=== PATIENT | male | born 1990 | race Caucasian/White ===

== ENCOUNTER 2022-05-07 12:47 | Emergency (ER) | payer SELFPAY ==
[2022-05-07 12:50] VITALS: BP 132/71; PULSE 78; RESP 14; TEMP 36.8; O2SAT 97
[2022-05-07 13:06] VITALS: BP 132/71; PULSE 78; RESP 14; TEMP 36.8; O2SAT 97
--- NOTE | 2022-05-07 13:16 | ED.URI ---
HPI - URI/Sore Throat General Chief Complaint: Upper Respiratory Infection Stated Complaint: right ear sore throat Time Seen by Provider: 05/07/22 13:16 Source: patient and RN notes reviewed Mode of arrival: ambulatory Limitations: no limitations History of Present Illness HPI Narrative: 31-year-old male presents concern for 1.5 week history of painful swallowing, sore throat, cough. He reports swollen glands. He reports initial right your pain with decreased hearing right ear. He denies any [id number] medications for his symptoms. He denies known sick contacts. MD elicited complaint: cough and sore throat Related Data Allergies Allergy/AdvReac Type Severity Reaction Status Date / Time No Known Allergies Allergy Verified 05/07/22 12:57 Review of Systems Review of Systems: CONSTITUTIONAL: Denies malaise, chills, sweats, or fever. EYES: Denies visual changes, redness, or discharge. ENT: Denies rhinorrhea, congestion, sinus pain. Reports swelling glands, Brown right ear pain, right-sided sore throat. CARDIOVASCULAR: Denies chest pain, palpitations, or edema. RESPIRATORY: Reports cough. Denies dyspnea. GASTROINTESTINAL: Denies abdominal pain, nausea, vomiting, diarrhea SKIN: Denies rash or itching. MUSCULOSKELETAL: Denies myalgia. NEUROLOGIC: Denies headache. All systems reviewed & are unremarkable except as noted in HPI and below PMFSH Past Medical History Medical History (Updated 05/07/22 @ 13:34 by Jessica Mark NP) Asthma Social History Social History (Updated 04/29/19 @ 09:22 by Louann Chang NP) Smoking packs per day: 0.5 Smoking cigarettes per day: 10.0 Years smoked: 13 Smoking pack-years: 6.50 Smoking status: Current every day smoker Gender identity (if verbalized by the patient): Male Comments At time of signature, agree with nursing past medical, surgical, social and family history. There is no relevant family history pertinent to the presenting complaint Exam Narrative: GENERAL: Well-appearing, well-nourished, and in no acute distress. HEAD: Normocephalic EYES: PERRLA, conjunctivae clear ENT: Nares clear, no discharge. Mucous membranes moist. TM pearly ferreira with sharp light reflex bilaterally; no tragal tenderness. Oropharynx erythematous without lesions. Tonsils mildly enlarged and without exudate, no drooling, no hoarseness, no trismus, uvula midline. NECK: Supple. Right cervical lymphadenopathy CHEST: Clear to auscultation, breath sounds equal. No wheezing, rhonchi, rales, or stridor. No respiratory distress, speaks in full sentences. HEART: Regular rate and rhythm. No murmur heard. SKIN: Warm, dry, no rash. NEURO: Alert and oriented x3. PSYCH: Normal mood and affect Course Course Emergency Course: Patient is aware of diagnosis, understands and agrees to treatment plan. Anticipatory guidance given. Patient agrees to follow-up as directed and is aware of reasons to seek care at the emergency department. Portions of this record may have been created with voice recognition software Level of Care: Express Care Visit Vital Signs Vital signs: Vital Signs Temperature 98.2 F 05/07/22 12:50 Pulse Rate 78 05/07/22 12:50 Respiratory Rate 14 05/07/22 12:50 Blood Pressure 132/71 05/07/22 12:50 Pulse Oximetry 97 05/07/22 12:50 Oxygen Delivery Room Air 05/07/22 12:50 Temperature 98.2 F 05/07/22 13:06 Pulse Rate 78 05/07/22 13:06 Respiratory Rate 14 05/07/22 13:06 Blood Pressure 132/71 05/07/22 13:06 Pulse Oximetry 97 05/07/22 13:06 Oxygen Delivery Room Air 05/07/22 13:06 Reviewed. MDM - URI/Sore Throat MDM Narrative Medical decision making narrative: Differential diagnosis considered: Pierre virus, strep pharyngitis, allergic rhinitis, upper respiratory tract infection, sinusitis, rhinosinusitis, nasopharyngitis. viral pharyngitis, otitis media, otitis externa, pneumonia, bronchitis, viral cough syndrome, viral syndrome, and
== END 2022-05-07 13:37 | disposition home or self-care (01) ==
PROVIDERS: Emergency Provider Nurse Practitioner; PCP Family Medicine
DX: J03.90 Acute tonsillitis, unspecified (principal); J45.909 Unspecified asthma, uncomplicated; F17.210 Nicotine dependence, cigarettes, uncomplicated
CPT/HCPCS: 36416; 86308; 87081; 87880; 99203; G0463

== ENCOUNTER 2023-06-06 16:55 | Emergency (ER) | payer OTHER, SELFPAY ==
[2023-06-06 17:07] VITALS: BP 115/70; PULSE 62; RESP 16; TEMP 36.9; O2SAT 99
--- NOTE | 2023-06-06 17:38 | ED.MALEGU ---
HPI - Male Genitourinary General Chief complaint: Urogenital-Male Stated complaint: Urinary Problem Source: patient and RN notes reviewed Mode of arrival: ambulatory Limitations: no limitations History of Present Illness HPI Narrative: 32 y/o male presented for c/o pain with urination and yellow discharge x3 days. States it feels the same as when he had JONG 15 years ago. Declines std testing at this time. Denies abdominal pain, flank pain, hematuria, testicular pain/swelling, or skin lesions. Related Data Allergies Allergy/AdvReac Type Severity Reaction Status Date / Time acetaminophen [From Vicodin] Allergy Other Verified 06/06/23 17:12 hydrocodone [From Vicodin] Allergy Other Verified 06/06/23 17:11 Review of Systems Review of Systems: CONSTITUTIONAL: Denies body aches, fever, chills, or sweats. CARDIOVASCULAR: Denies chest pain, palpitations, or edema. RESPIRATORY: Denies cough or dyspnea. GASTROINTESTINAL: Denies abdominal pain, nausea, vomiting, or diarrhea. GENITOURINARY: Reports dysuria, urethral discharge denies frequency, urgency, hematuria, flank pain SKIN: Denies rash, itching, or wounds. MUSCULOSKELETAL: Denies back pain or myalgia. [facility] Past Medical History Medical History Asthma Social History Social History Smoking packs per day: 0.5 Smoking cigarettes per day: 10.0 Years smoked: 13 Smoking pack-years: 6.50 Smoking status: Current every day smoker Living arrangements: with family Gender identity (if verbalized by the patient): Male Comments At time of signature, I have reviewed and agree with nursing past medical, surgical, social and family history unless otherwise noted. Please see nursing chart for further information. There is no relevant family history pertinent to the presenting complaint Exam Narrative: GENERAL: Well-appearing ENT: Mucous membranes pink and moist. NECK: Normal AROM. Supple. CHEST: No respiratory distress. Clear to auscultation. HEART: Regular rate and rhythm. ABDOMEN: Soft, nontender, nondistended, normal active bowel sounds. No CVA tenderness SKIN: Warm, dry, no rash. NEURO: No focal deficits. Alert and oriented x3. Gait steady. Course Course Emergency Course: Patient is aware of diagnosis, understands and agrees to treatment plan. Anticipatory guidance given. Patient agrees to follow-up as directed and is aware of reasons to seek care at the emergency department. Portions of this record may have been created with voice recognition software Level of Care: Express Care Visit Vital Signs Vital signs: Vital Signs Temperature 98.4 F 06/06/23 17:07 Pulse Rate 62 06/06/23 17:07 Respiratory Rate 16 06/06/23 17:07 Blood Pressure 115/70 06/06/23 17:07 Pulse Oximetry 99 06/06/23 17:07 Oxygen Delivery Room Air 06/06/23 17:07 Temperature 98.4 F 06/06/23 17:07 Pulse Rate 62 06/06/23 17:07 Respiratory Rate 16 06/06/23 17:07 Blood Pressure 115/70 06/06/23 17:07 Pulse Oximetry 99 06/06/23 17:07 Oxygen Delivery Room Air 06/06/23 17:07 Reviewed MDM - Male Genitourinary MDM Narrative Medical decision making narrative: Patient presenting with concern for UTI. Urine will be sent for culture prior to treatment. Declined STD testing after lengthy conversation of risks. Pt is in room with sig other. States he will go to a clinic to get blood testing. Discussed physical exam findings and urine result. Advised supportive measures and signs/symptoms to go to the ER. Pt is appropriate for outpt treatment and f/u. Differential Diagnosis Differential diagnosis: Likely urinary tract infection, urethritis, epididymitis, prostatitis and other (std) Lab Data Labs: Urine Glucose Negative Reference Range: Negative Urine
== END 2023-06-06 17:52 | disposition home or self-care (01) ==
PROVIDERS: Emergency Provider Nurse Practitioner Family
DX: R30.0 Dysuria (principal); F17.210 Nicotine dependence, cigarettes, uncomplicated; J45.909 Unspecified asthma, uncomplicated
CPT/HCPCS: 81003; 87086; 99213; G0463

== ENCOUNTER 2023-07-16 10:43 | Emergency (ER) | payer SELFPAY ==
[2023-07-16 10:50] VITALS: BP 133/69; PULSE 76; RESP 16; TEMP 37.4; O2SAT 98
--- NOTE | 2023-07-16 11:16 | ED.URI ---
HPI - URI/Sore Throat General Chief Complaint: Upper Respiratory Infection Stated Complaint: Congestion/Cough/Sore Throat Time Seen by Provider: 07/16/23 11:32 Source: patient and RN notes reviewed Mode of arrival: ambulatory Limitations: no limitations History of Present Illness HPI Narrative: 32-year-old male presents with concern for cough, sore throat, nasal congestion, chills, body aches, feeling lightheaded. Reports symptoms started 4 days ago. MD elicited complaint: fever Related Data Home Medications Medication Instructions Recorded Confirmed No Home Medications 07/16/23 07/16/23 Allergies Allergy/AdvReac Type Severity Reaction Status Date / Time acetaminophen [From Vicodin] Allergy Other Verified 07/16/23 10:48 hydrocodone [From Vicodin] Allergy Other Verified 07/16/23 10:48 Review of Systems Review of Systems: CONSTITUTIONAL: Reports malaise, chills, sweats, fever. EYES: Denies visual changes, redness, or discharge. ENT: Reports rhinorrhea, congestion,and sore throat. CARDIOVASCULAR: Denies chest pain, palpitations, or edema. RESPIRATORY: Reports cough. Denies dyspnea. GASTROINTESTINAL: Denies abdominal pain, nausea, vomiting, diarrhea SKIN: Denies rash or itching. MUSCULOSKELETAL: Reports myalgia. NEUROLOGIC: Reports headache and lightheadedness. All systems reviewed & are unremarkable except as noted in HPI and below PMFSH Past Medical History Medical History Asthma Social History Social History Smoking packs per day: 0.5 Smoking cigarettes per day: 10.0 Years smoked: 13 Smoking pack-years: 6.50 Smoking status: Current every day smoker Living arrangements: with family Gender identity (if verbalized by the patient): Male Comments At time of signature, agree with nursing past medical, surgical, social and family history. There is no relevant family history pertinent to the presenting complaint Exam Narrative: GENERAL: Nontoxic-appearing, well-nourished, and in no acute distress. HEAD: Normocephalic EYES: PERRLA, conjunctivae clear ENT: Nares clear, turbinates edematous and erythematous, clear discharge. Mucous membranes moist. TM pearly ferreira with dull light reflex bilaterally; no tragal tenderness. Oropharynx not erythematous without lesions. Tonsils not enlarged and without exudate, no drooling, no hoarseness, no trismus, uvula midline. NECK: Supple. No lymphadenopathy CHEST: Clear to auscultation, breath sounds equal. No wheezing, rhonchi, rales, or stridor. No respiratory distress, speaks in full sentences. HEART: Regular rate and rhythm. No murmur heard. SKIN: Warm, dry, no rash. NEURO: Alert and oriented x3. PSYCH: Normal mood and affect Course Course Emergency Course: Patient is aware of diagnosis, understands and agrees to treatment plan. Anticipatory guidance given. Patient agrees to follow-up as directed and is aware of reasons to seek care at the emergency department. Portions of this record may have been created with voice recognition software Level of Care: Express Care Visit Vital Signs Vital signs: Vital Signs Temperature 99.4 F 07/16/23 10:50 Pulse Rate 76 07/16/23 10:50 Respiratory Rate 16 07/16/23 10:50 Blood Pressure 133/69 07/16/23 10:50 Pulse Oximetry 98 07/16/23 10:50 Oxygen Delivery Room Air 07/16/23 10:50 Temperature 99.4 F 07/16/23 10:50 Pulse Rate 76 07/16/23 10:50 Respiratory Rate 16 07/16/23 10:50 Blood Pressure 133/69 07/16/23 10:50 Pulse Oximetry 98 07/16/23 10:50 Oxygen Delivery Room Air 07/16/23 10:50 Reviewed. MDM - URI/Sore Throat MDM Narrative Medical decision making narrative: Differential diagnosis considered: Pierre virus, strep pharyngitis, allergic rhinitis, upper respiratory tract infection, sinusitis, rhinosinusitis, nasopharyngitis. viral pharyngitis, otiti
== END 2023-07-16 11:40 | disposition home or self-care (01) ==
PROVIDERS: Emergency Provider Nurse Practitioner
DX: J10.1 Influenza due to other identified influenza virus with other respiratory manifestations (principal); Z20.822 Contact with and (suspected) exposure to COVID-19; F17.210 Nicotine dependence, cigarettes, uncomplicated; J45.909 Unspecified asthma, uncomplicated
CPT/HCPCS: 87081; 87426; 87804; 87880; 99213; G0463

== ENCOUNTER 2024-08-05 12:27 | Emergency (ER) | payer SELFPAY ==
[2024-08-05 12:43] VITALS: BP 135/68; PULSE 68; RESP 16; TEMP 36.8; O2SAT 98
--- OUTSIDE RECORDS SUMMARY | 2024-08-05 12:47 | XMS_ITS | Referral Summary ---
Author Organization [facility] Address [address] [place] [address] Care Team Providers Care Health And Safety Coordinator Name Role Phone No, Physician Primary Care Provider [phone] Allergies Active Allergy Reactions Criticality Noted Date Comments Codeine Other (See comments) Low 06/16/2023 Pt reports it makes me rage out Medications ibuprofen (ADVIL,MOTRIN) 600 mg tablet Take 1 tablet (600 mg total) by mouth every 6 (six) hours as needed for pain for up to 30 doses 30 tablet 09/02/19 24 Active neomycin-polymyx in-dexAMETHasone (MAXITROL) 3.5mg/mL-10,000 unit/mL-0.1 % ophthalmic suspensionIndica tions:Conjunctiv al abrasion, right, initial encounter,Foreig n body of conjunctival sac of right eye, initial encounter Administer 1 drop into the right eye 4 (four) times a day Collaborating physician Nuno Beckett MD 5 mL 09/02/19 24 Active Active Problems Problem Noted Date Diagnosed Date Conjunctival abrasion, right, initial encounter 10/22/2022 Foreign body of right conjunctival sac 3 Subconjunctival hemorrhage of right eye 10/23/19 23 Immunizations Immunization Administration Dates Next Due DTP 11/06/1994, 3,05/31/1991,04/01,01/28/1991 Hep B, Adolescent or Pediatric 12/30/2000,1996,10/08/1995 HiB 11/06/1994, 3,05/31/1991,04/01,01/28/1991 MMR 11/06/1994,02/07/1992 Meningococcal Polysaccharide (Menomune) 12/25/2004 OPV 11/06/1994, 3,05/31/1991,04/01,01/28/1991 Td, adsorbed 12/25/2004 Tdap 08/22/2017,10/09/2005 Social History Tobacco Use Types Packs/Day Years Used Date Smoking Tobacco: Former Cigarettes 1 15 0 04/2006 - 04/2021 Smokeless Tobacco: Never Alcohol Use Standard Drinks/Week Comments Yes 0 (1 standard drink = 0.6 oz pur e alcohol) social Personal Safety Answer Date Recorded Have you ever been in or are you currently in a harmful physical or emotional relationship or is someone making you feel afraid or unsafe? 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 Gender Identity Not on file Sexual Orientation Not on file Last Filed Vital Signs Vital Sign Reading Time Taken Comments Blood Pressure 120/78 09/02/2023 11:15 PM CDT Pulse 65 09/02/2023 11:15 PM CDT Temperature 36.4 C (97.5 F) 09/02/2023 8:51 PM CDT Respiratory Rate 18 09/02/2023 11:15 PM CDT Oxygen Saturation 97% 09/02/2023 11:15 PM CDT Inhaled Oxygen Concentration - - Weight 79.4 kg (175 lb) 09/02/2023 8:51 PM CDT Height 175.3 cm (5' 9 ) 06/16/2023 3:08 PM MOTH PROOFER Body Mass Index 25.84 06/16/2023 3:08 PM MOTH PROOFER Plan of Treatment Not on file Insurance [employer] OPEN ACCESS [employer] ACC[employer] Care Teams Health And Safety Coordinator Relationship Specialty Start Date End Date No, Physician PCP - General 11/15/20
--- OUTSIDE RECORDS SUMMARY | 2024-08-05 12:47 | XMS_ITS | Clinical Summary ---
Author Organization [facility] Address [address] [place] [address] Phone Care Team Providers Care Shipping Track Supervisor Name Role Phone Katy Gurrola MD Primary Care Provider [phone] Allergies No known active allergies Medications PARoxetine (PAXIL) 20 MG TabletIndication s:Premature ejaculation Take 1 Tab by mouth as needed for Other (Ejaculatio n) for up to 30 doses. 30 Tab 1 11/12/2017 Active famotidine (PEPCID) 20 MG Tablet Take 1 Tablet by mouth 2 times daily. 60 Tablet 08/11/2021 Active dicyclomine (BENTYL) 20 MG Tablet Take 1 Tablet by mouth every 6 hours as needed (abdominal pain). 20 Tablet 08/11/2021 Active Social History Tobacco Use Types Packs/Day Years Used Date Smoking Tobacco: Every Day Cigarettes Smokeless Tobacco: Former Chew Quit: 11/13/2007 Tobacco Cessation:Ready to Q uit: Yes; Counseling Given: Yes Alcohol Use Standard Drinks/Week Comments No 0 (1 standard drink = 0.6 oz pur e alcohol) occasionally Sexually Active Control Partners Comments Yes Female Sex and Gender Information Value Date Recorded Sex Assigned at Not on file Legal Sex Male 8:46 PM CDT Gender Identity Not on file Sexual Orientation Not on file Last Filed Vital Signs Vital Sign Reading Time Taken Comments Blood Pressure 96/58 08/11/2021 8:30 PM CDT Pulse 66 08/11/2021 8:30 PM CDT Temperature 36.7 C (98 F) 08/11/2021 3:44 PM CDT Respiratory Rate 16 08/11/2021 8:30 PM CDT Oxygen Saturation 92% 08/11/2021 8:30 PM CDT Inhaled Oxygen Concentration - - Weight 81.6 kg (180 lb) 08/11/2021 3:44 PM CDT Height 175.3 cm (5' 9 ) 08/11/2021 3:44 PM CDT Body Mass Index 26.58 08/11/2021 3:44 PM CDT Plan of Treatment Health Maintenance Due Date Last Done Comments Hepatitis C Virus (HCV) Screening 1990 Influenza Immunization (#1) 2023 SARS-COV-2 Immunization (2023-25 season) 2023 Respiratory Syncytial Virus (RSV) Immunization (Adult) (1 - 1-dose 75+ series) 2065 Hepatitis B Immunization Completed 001, 08/30/1996, 10/08/1995 Meningococcal Immunization (ACWY) Aged Out 12/25/2004 No longer eligible based on patient's age to complete this topic DTaP/Tdap/Td Immunization Discontinued 2017, 10/09/2005, 12/25/2004, Additional history exists TdaP Immunization Completed 08/22/2017, 10/09/2005 Pneumococcal Immunization Combined Aged Out No longer eligible based on patient's age to complete this topic Rotavirus Immunization Aged Out No lo nger eligible based on patient's age to complete this topic Insurance [employer] Care Teams Shipping Track Supervisor Relationship Specialty Start Date End Date Katy Gurrola MD [address] [place] [address] PCP - General Internal Medicine 04/19/18
--- OUTSIDE RECORDS SUMMARY | 2024-08-05 12:47 | XMS_ITS | Clinical Summary ---
Author Organization [facility] Address [address] [place] [address] Care Team Providers Care Director Of Architecture Name Role Phone No, Physician Primary Care Provider [phone] Allergies Active Allergy Reactions Criticality Noted Date [...] 11/06/1994, 3,05/31/1991,04/01,01/28/1991 Td, adsorbed 12/25/2004 Tdap 08/22/2017,10/09/2005 Surgical History Surgery Date Site/Laterality Comments FACIAL COSMETIC SURGERY lip, was hit by a baseball Medical History Medical History Date Comments Asthma ADD (attention deficit disorder) Family History Medical History Relation Name Comments Arthritis Father Arthritis Mother Deep vein thrombosis Mother Kidney disease Sister Relation Name Status Comments Father Mother Sister Social History Tobacco Use Types Packs/Day Years [...] on file 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 Gender Identity Not on file Sexual Orientation Not on file Obstetrics History Last Filed Vital Signs Vital Sign Reading [...] cm (5' 9 ) 06/16/2023 3:08 PM MARKER MACHINE Body Mass Index 25.84 06/16/2023 3:08 PM MARKER MACHINE Plan of Treatment Health Maintenance Due Date Last Done Comments Depression Screening 1990 Hepatitis C Screening 1990 Varicella Vaccines (1 of 2 - 13+ 2-dose series) 10/31/2003 Regular Well Visit/Exam 18-64 2008 Influenza Vaccine (Season Ended) 2024 DTaP/Tdap/Td Vaccine (8 - Td or Tdap) 08/23/2027 08/22/2017, 10/09/2005, 12/25/2004, Additional history exists Hepatitis B Screening Completed 12/30/2000 , 08/30/1996, 10/08/1995 HPV Vaccines Aged Out No longer eligi ble based on patient's age to complete this topic Pneumococcal vaccine <65 Aged Out No longer eligible based on patient's age to complete this topic Insurance [employer] OPEN ACCESS [employer] OPEN ACCESS Care Teams Director Of Architecture Relationship Specialty Start Date End Date No, Physician PCP - General 11/15/20
--- NOTE | 2024-08-05 13:03 | ED.GENADULT ---
HPI - General Adult General Chief complaint: Nausea/Vomiting/Diarrhea Stated complaint: n/v/d/f Time Seen by Provider: 08/05/24 12:55 Source: patient, RN notes reviewed and old records reviewed Mode of arrival: ambulatory Limitations: no limitations History of Present Illness HPI narrative: 33-year-old male presents to [facility] care with complaints of having fever of 101F on Friday and then started having some nausea vomiting and episodes of diarrhea starting on Friday. Patient reports that he has been unable to eat for the past 3 days. Patient reports that he has had some mid abdominal discomfort denies any pain to his right lower abdomen or over his bladder area. Patient reports that he did take some Ibuprofen for his fever symptom. Patient reports that he did vomit this morning and he also had emesis this morning. Patient reports that his has been ill also with similar symptoms. He states that he needs work note. MD complaint: nausea vomiting and diarrhea Onset (ago): day(s) (3) Location: abdomen (mid abdomen discomfort) Severity: moderate Quality: other (crampy) Pain Consistency: intermittent Treatments prior to arrival: NSAID (for fever) Related Data Allergies Allergy/AdvReac Type Severity Reaction Status Date / Time acetaminophen (From Vicodin) Allergy Other Verified 08/05/24 12:41 hydrocodone (From Vicodin) Allergy Other Verified 08/05/24 12:41 Review of Systems Review of Systems: CONSTITUTIONAL: Reports malaise, chills, sweats, or fever. EYES: Denies visual changes, redness, or discharge. ENT: Reports no rhinorrhea, congestion, sinus pain, otalgia and sore throat. CARDIOVASCULAR: Denies chest pain, palpitations, or edema. RESPIRATORY: Reports no acute cough.? Denies dyspnea. GASTROINTESTINAL: Reports middle abdominal crampy pain, nausea, vomiting, diarrhea SKIN: Denies rash or itching. MUSCULOSKELETAL: Denies myalgia. NEUROLOGIC: Denies headache. All systems reviewed & are unremarkable except as noted in HPI and below PMFSH Past Medical History Medical History (Updated 08/06/24 @ 11:59 by Louann Chang NP) Tonsillitis Asthma Social History Social History (Updated 08/06/24 @ 11:59 by Louann Chang NP) Smoking packs per day: 0.5 Smoking cigarettes per day: 10.0 Years smoked: 13 Smoking pack-years: 6.50 Smoking status: Current every day smoker Tobacco type: e-cigarettes/vaping Additional smoking assessment comments: former cigarette smoker now vapes Alcohol intake: unknown Substance use: unknown Living arrangements: with family Gender identity (if verbalized by the patient): Male Comments At time of signature, agree with nursing past medical, surgical, social and family history. There is no relevant family history pertinent to the presenting complaint Exam Narrative: GENERAL: Well-appearing, well-nourished, and in no acute distress. HEAD: Normocephalic EYES: PERRLA, conjunctivae clear ENT: Nares clear, turbinates edematous and erythematous, clear discharge. Mucous membranes moist. TM pearly ferreira with dull light reflex bilaterally; no tragal tenderness. Oropharynx erythematous without lesions. Tonsils not enlarged and without exudate, no drooling, no hoarseness, no trismus, uvula midline. NECK: Supple. No lymphadenopathy CHEST: Clear to auscultation, breath sounds equal. No wheezing, rhonchi, rales, or stridor. No respiratory distress, speaks in full sentences. no cough noted SAO2 98% on room air ABDOMEN: soft to palpation with no palpable pain, no McBurney point tenderness, bowel sounds present in all quadrants.no rigidity, masses noted HEART: Regular rate and rhythm. No murmur heard. SKIN: Warm, dry, no rash. NEURO: Alert and oriented x3. PSYCH: Normal mood and affect Course Course Emergency Course: Patient is aware of diagnosis, understands and agrees to treatment plan.? Anticipatory guidance given.? Patient agrees to follow-up as directed and is aware of reasons to seek care at the emergency department. Portions of this record may have been created with voice recognition software Level of Care: Express Care Visit Vital Signs Vital signs: Vital Signs Temperature 36.8 C 08/05/24 12:43 Pulse Rate 68 08/05/24 12:43 Respiratory Rate 16 08/05/24 12:43 Blood Pressure 135/68 08/05/24 12:43 Pulse Oximetry 98 08/05/24 12:43 Temperature 36.8 C 08/05/24 12:43 Pulse Rate 68 08/05/24 12:43 Respiratory Rate 16 08/05/24 12:43 Blood Pressure 135/68 08/05/24 12:43 Pulse Oximetry 98 08/05/24 12:43 Reviewed Medical Decision Making Differential Diagnosis Differential Diagnosis: viral syndrome, gastroenteritis, influenza COVID viral infection, nausea vomiting and diarrhea. Medical Records Medical records reviewed: Yes I reviewed the external patient's medical records. Vital Signs Vital Signs: Vital Signs Temperature 36.8 C 08/05/24 12:43 Pulse Rate 68 08/05/24 12:43 Respiratory Rate 16 08/05/24 12:43 Blood Pressure 135/68 08/05/24 12:43 Pulse Oximetry 98 08/05/24 12:43 Temperature 36.8 C 08/05/24 12:43 Pulse Rate 68 08/05/24 12:43 Respiratory Rate 16 08/05/24 12:43 Blood Pressure 135/68 08/05/24 12:43 Pulse Oximetry 98 08/05/24 12:43 reviewed Lab Data Lab results reviewed: Yes I reviewed the patient's lab results. Lab results narrative: Influenza A negative, Influenza B negative, COVID antigen negative Labs: Lab Results 08/05/24 Range/Units 12:40 POC Influenza A Ag Negative (Negative) POC Influenza B Ag Negative (Negative) POC SARS CoV-2 Ag Negative (Negative) reviewed Critical Care Time Critical Care Time Critical Care Time: No Discharge Plan Discharge Clinical Impression: Gastroenteritis Patient Disposition: Home Condition: Stable Instructions: Antibiotic Form, Clear Liquid Diet (ED), Gastroenteritis (ED) Additional Instructions: Clear liquids for the next 8-10 hours, then advance to a bland diet as tolerated A bland diet can consist of--BRAT diet which is bananas, rice, applesauce, and toast Avoid fried, greasy, fatty, fried foods Avoid caffeine, nicotine, and alcohol Return to your regular diet in the next 3-4 days Medication as directed for nausea and vomiting Sometimes ibuprofen/Aleve can cause increased stomach upset [id number] Imodium if develop diarrhea Follow-up with her PCP if continued problems or uncontrolled pain Patient Language: Kyrgyz Prescriptions: New ondansetron 4 mg tablet,disintegrating 4 mg PO Q6H PRN (Reason: nausea and vomiting) Qty: 14 0RF Follow-up/Referrals: UNKNOWN,DOCTOR [Primary Care Provider] - Stand Alone Forms: Work/School Release IP Time of Disposition: 13:15 Quality Aliyah Coma Scale Eyes: Open Verbal: Oriented and Alert Motor: Follows Commands Hutchins Coma Total Score: 15
[2024-08-05 13:14] LABS: EDCOVIDSCREEN Negative (Negative); EDINFLUASCREEN Negative (Negative); EDINFLUBSCREEN Negative (Negative)
== END 2024-08-05 13:20 | disposition home or self-care (01) ==
PROVIDERS: Emergency Provider Registered Nurse
DX: K52.9 Noninfective gastroenteritis and colitis, unspecified (principal); Z20.822 Contact with and (suspected) exposure to COVID-19; J45.909 Unspecified asthma, uncomplicated; F17.290 Nicotine dependence, other tobacco product, uncomplicated
CPT/HCPCS: 87426; 87804; 99213; G0463